=== PATIENT | female | born 1980 | race African-American/Black ===

== ENCOUNTER 2023-06-24 12:59 | Emergency (ER) | payer MEDICAID ==
[~2023-06-24] VITALS: Ht 167.6 cm; Wt 72.6 kg
[2023-06-24 13:14] VITALS: BP 120/90; PULSE 90; RESP 18; TEMP 97; O2SAT 98
[2023-06-24 13:38] VITALS: O2SAT 98
[2023-06-24 13:40] LABS: BASOPHILS # (AUTO) 0.1 K/uL (0.00-0.22); BASOPHILS % (AUTO) 0.9 % (0.0-2.0); EOSINOPHILS % (AUTO) 0.1 % (0.0-4.0); HEMOGLOBIN 13.9 g/dL (12.0-16.0); LYMPHOCYTES # (AUTO) 1.4 K/uL (2.5-16.5); LYMPHOCYTES % (AUTO) 15.9 % (20.5-51.1); MEAN CORPUSCULAR HEMOGLOBIN 32 pg (27-31); MEAN CORPUSCULAR HGB CONC 34 g/dL (33-37); MEAN CORPUSCULAR VOLUME 93.6 fL (80-94); MONOCYTES # (AUTO) 0.3 K/uL (0.8-1.0); MONOCYTES % (AUTO) 3.4 % (1.7-9.3); NEUTROPHILS # (AUTO) 7.1 K/uL (1.8-7.7); NEUTROPHILS % (AUTO) 79.7 % (42.2-75.2); PLATELET COUNT (AUTO) 453 K/uL (140-450); RED BLOOD CELL COUNT(AUTO) 4.38 MIL/uL (4.20-5.40); RED CELL DISTRIBUTION WIDTH 13.5 % (11.6-13.7); WHITE BLOOD COUNT (AUTO) 8.9 K/uL (4.8-10.8)
[2023-06-24 13:57] LABS: INR 0.98 (0.8-1.2); PARTIAL THROMBOPLASTIN TIME 22.8 secs (22-35.6); PROTHROMBIN TIME 10.3 secs (10.8-13.4)
[2023-06-24 13:58] LABS: ALANINE AMINOTRANSFERASE 23 U/L (12-78); ALBUMIN 3.9 g/dL (3.4-5.0); ALKALINE PHOSPHATASE 82 U/L (50-136); ASPARTATE AMINOTRANSFERASE 22 U/L (15-37); CALCIUM 9.1 mg/dL (8.5-10.1); CARBON DIOXIDE 19.4 mmol/L (21-32); CHLORIDE 104 mmol/L (98-107); CREATININE 0.9 mg/dL (0.6-1.3); GFR ARICAN-AMERICAN 88 mL/min (>90); GFR NON ARICAN-AMERICAN 73 mL/min (>90); GLUCOSE 133 mg/dL (74-106); POTASSIUM 3.4 mmol/L (3.5-5.1); SODIUM SERUM 140 mmol/L (136-145); TOTAL BILIRUBIN 0.5 mg/dL (0.0-1.0); TOTAL PROTEIN, SERUM 8.2 g/dL (6.4-8.2); UREA NITROGEN, BLOOD 20 mg/dL (7-18)
[2023-06-24] MEDS ORDERED: HALOPERIDOL IM 5 MG/ML VIAL IM ONE (14:30)
[2023-06-24] MEDS ORDERED: diphenhydrAMINE 50 MG/ML VIAL IVP ONE (14:30)
[2023-06-24] MEDS ORDERED: NACL 0.9% 1,000 ML IV ONE (14:30)
[2023-06-24] MEDS ORDERED: METOCLOPRAMIDE 10 MG/2 ML INJ VIAL IVP ONE (14:30)
[2023-06-24] MEDS ORDERED: METOCLOPRAMIDE 10 MG/2 ML INJ VIAL ONE (15:39)
[2023-06-24] MEDS ORDERED: HALOPERIDOL IM 5 MG/ML VIAL ONE (15:39)
[2023-06-24] MEDS ORDERED: diphenhydrAMINE 50 MG/ML VIAL ONE (15:39)
[2023-06-24] MEDS ORDERED: MORPHINE SULFATE 4 MG/ML SYR IVP ONE (16:25)
== END 2023-06-24 14:48 | disposition left against medical advice (07) ==
LOC: MED 12:59
DX: R10.84 Generalized abdominal pain (principal); R19.7 Diarrhea, unspecified; R11.10 Vomiting, unspecified; Z90.49 Acquired absence of other specified parts of digestive tract
CPT/HCPCS: 36415; 71045; 74176; 80053; 83690; 84484; 85025; 85610; 85730; 93005; 96361; 96374; 96375; 99285; J1200; J1630; J2765; J7030; Q0092

== ENCOUNTER 2023-06-27 11:43 | Emergency (ER) | payer MEDICAID ==
[~2023-06-27] VITALS: Ht 160 cm; Wt 79.4 kg
[2023-06-27 11:54] VITALS: BP 165/111; PULSE 92; RESP 18; TEMP 97.7; O2SAT 100
[2023-06-27] MEDS ORDERED: ONDANSETRON 4 MG ODT PO ONE (13:05)
[2023-06-27] MEDS ORDERED: ALUMINUM HYD/MAG/SIMETHICONE 30 ML UDC PO ONE (13:05)
== END 2023-06-27 13:25 | disposition left against medical advice (07) ==
LOC: MED 11:43
DX: R10.13 Epigastric pain (principal); R10.12 Left upper quadrant pain
CPT/HCPCS: 99281; Q0162

== ENCOUNTER 2024-04-04 20:37 | Emergency (ER) | payer MEDICAID, OTHER ==
[~2024-04-04] VITALS: Ht 160 cm; Wt 72.6 kg
[2024-04-04 20:49] VITALS: BP 143/99; PULSE 93; RESP 24; TEMP 98.1; O2SAT 98
[2024-04-04] MEDS: ONDANSETRON 4 MG/2 ML VIAL IVP ONE (21:29)
[2024-04-04] MEDS: NACL 0.9% 1,000 ML IV ONE (21:29)
[2024-04-04] MEDS: MORPHINE SULFATE 2 MG/ML SYR IVP STA (21:30)
[2024-04-04] MEDS: PANTOPRAZOLE 40 MG INJ VIAL IVP ONE (21:30)
[2024-04-04 21:44] LABS: BASOPHILS % (AUTO) 0.3 % (0.0-2.0); HEMATOCRIT 40.6 % (36-48); HEMOGLOBIN 13.7 g/dL (12.0-16.0); LYMPHOCYTES # (AUTO) 1.5 K/uL (2.5-16.5); LYMPHOCYTES % (AUTO) 11.2 % (20.5-51.1); MEAN CORPUSCULAR HEMOGLOBIN 31 pg (27-31); MEAN CORPUSCULAR HGB CONC 34 g/dL (33-37); MEAN CORPUSCULAR VOLUME 93.1 fL (80-94); MONOCYTES # (AUTO) 0.4 K/uL (0.8-1.0); MONOCYTES % (AUTO) 2.6 % (1.7-9.3); NEUTROPHILS # (AUTO) 11.7 K/uL (1.8-7.7); NEUTROPHILS % (AUTO) 85.9 % (42.2-75.2); PLATELET COUNT (AUTO) 405 K/uL (140-450); RED BLOOD CELL COUNT(AUTO) 4.36 MIL/uL (4.20-5.40); RED CELL DISTRIBUTION WIDTH 14.2 % (11.6-13.7); WHITE BLOOD COUNT (AUTO) 13.6 K/uL (4.8-10.8)
[2024-04-04 21:48] VITALS: O2SAT 98
[2024-04-04 22:02] LABS: ALANINE AMINOTRANSFERASE 20 U/L (12-78); ALBUMIN 4.2 g/dL (3.4-5.0); ALKALINE PHOSPHATASE 86 U/L (50-136); ANION GAP 19.6 (8-16); ASPARTATE AMINOTRANSFERASE 12 U/L (15-37); CHLORIDE 99 mmol/L (98-107); GFR ARICAN-AMERICAN 77 mL/min (>90); GFR NON ARICAN-AMERICAN 64 mL/min (>90); GLUCOSE 111 mg/dL (74-106); LIPASE 61 U/L (16-77); POTASSIUM 3.6 mmol/L (3.5-5.1); SODIUM SERUM 137 mmol/L (136-145); TOTAL BILIRUBIN 0.8 mg/dL (0.0-1.0); TOTAL PROTEIN, SERUM 8.6 g/dL (6.4-8.2); UREA NITROGEN, BLOOD 22 mg/dL (7-18)
[2024-04-04 22:53] LABS: APPEARANCE,URINE CLEAR (CLEAR); BILIRUBIN,URINE NEGATIVE (NEGATIVE); BLOOD, URINE NEGATIVE (NEGATIVE); COLOR,URINE YELLOW (YELLOW); LEUKOCYTE ESTERASE ,URINE NEGATIVE (NEGATIVE); NITRITE, URINE NEGATIVE (NEGATIVE); PH,URINE 8.5 (5.0-9.0); PROTEIN,URINE 1+ (NEGATIVE); UGLUCOSE NEGATIVE (NEGATIVE); UROBILINOGEN,URINE 0.2 EU/dL (0.2 - 1)
[2024-04-04 23:31] LABS: ALCOHOL, BLOOD < 3 mg/dL (<10)
[2024-04-04] MEDS ORDERED: ONDA-188 PO (23:33)
[2024-04-04] MEDS ORDERED: ACET-10509 PO (23:33)
[2024-04-04] MEDS ORDERED: MAG355OR2 PO (23:33)
[2024-04-04] MEDS ORDERED: AMOX1TAB8 PO (23:33)
== END 2024-04-04 23:59 | disposition home or self-care (01) ==
LOC: MED 20:37
DX: K52.9 Noninfective gastroenteritis and colitis, unspecified (principal); F10.929 Alcohol use, unspecified with intoxication, unspecified; F12.90 Cannabis use, unspecified, uncomplicated; I10 Essential (primary) hypertension; Z90.49 Acquired absence of other specified parts of digestive tract; Y90.0 Blood alcohol level of less than 20 mg/100 ml
CPT/HCPCS: 36415; 74177; 80053; 81003; 83690; 84703; 85025; 96361; 96374; 96375; 99285; C9113; G0482; J2270; J2405; J7030; Q9967